=== PATIENT | female | born 1950 | race Caucasian/White ===

== ENCOUNTER → 2020-08-09 | Outpatient (CLI) | payer MEDICARE ==
--- NOTE | 2020-08-09 13:00 | Diagnostic Imaging Report ---
INDICATION: Routine screening. No prior mammograms are available for comparison. This a baseline study. 2-D and 3-D bilateral screening mammography was performed with CAD. Fibronodular parenchymal pattern is noted. There is a nodule in the medial aspect of the right breast at mid to posterior depth. Additional views are recommended. This appears to be inferiorly located on the MLO view. No malignant appearing microcalcifications are seen. Axillae are unremarkable. IMPRESSION: BI-RADS 0 Right breast nodular density. Additional views recommended for further evaluation. ACR BI-RADS Category 0: Incomplete. (Needs additional imaging evaluation). Result letter will be mailed to the patient. Note: At least 10% of breast cancer is not imaged by mammography. Dictated by: Dictated on workstation # [id number]
== END ==
LOC: RAD 11:00
PROVIDERS: ATTEND Family Medicine
DX: Z12.31 Encounter for screening mammogram for malignant neoplasm of breast (principal)
CPT/HCPCS: 77063; 77067

== ENCOUNTER → 2021-01-16 | Outpatient (CLI) | payer MEDICARE ==
--- NOTE | 2021-01-16 10:06 | Diagnostic Imaging Report ---
INDICATION: Right breast nodule. Patient presents for additional views. Correlation is made with screening study from 08/09/2020. Unilateral right 2-D and 3-D diagnostic mammography was performed. This included spot compression CC and MLO view as well as conventional 90 degree lateral view. There is a persistent nodular density in the lower and slightly inner right breast approximately 10 cm from the nipple. Further evaluation of this area with ultrasound is recommended. There is benign calcification. No malignant appearing microcalcifications are seen. IMPRESSION: BI-RADS 0 Persistent nodular density in the lower slightly inner right breast 10 cm from the nipple. Further evaluation with ultrasound is recommended and will be performed today. ACR BI-RADS Category 0: Incomplete. (Needs additional imaging evaluation). Result letter will be mailed to the patient. Note: At least 10% of breast cancer is not imaged by mammography. Dictated by: Dictated on workstation # [id number]
--- NOTE | 2021-01-16 12:41 | Diagnostic Imaging Report ---
Indication: Right breast nodule. Correlation is made with diagnostic mammogram earlier same day and screening mammogram from 08/09/2020. Sonographic interrogation of the lower and slightly inner right breast was performed. There is an area of hypoechogenicity at the 5-6 o'clock location of the right breast, 5 to 6 cm from the nipple measuring 14 mm x 9 mm x 10 mm. This does show some vascularity. This may account for the nodular density noted on mammography. No other sonographic abnormalities are seen. IMPRESSION: BI-RADS Category 4 Hypoechoic nodule at the 5-6 o'clock location of the right breast, 5 6 images from the nipple, likely accounting for the mammographic density. Tissue sampling would be recommended. This would be amenable to ultrasound-guided core biopsy. Dictated by: Dictated on workstation # [id number]
== END ==
LOC: RAD 09:45
PROVIDERS: ATTEND Family Medicine
DX: N63.13 Unspecified lump in the right breast, lower outer quadrant (principal)
CPT/HCPCS: 76642; 77065; G0279